=== PATIENT | male | born 1985 | race Asian ===

== ENCOUNTER 2023-02-21 20:31 | Emergency (ER) | payer BC ==
[~2023-02-21] VITALS: Ht 177.8 cm; Wt 102.1 kg
[2023-02-21 20:51] VITALS: BP_SYST 141; PULSE 99; RESP 18; TEMP 99.2; O2SAT 99
[2023-02-21 21:27] LABS: BASOPHILS % (AUTO) 0.3 % (0.0-2.0); EOSINOPHILS # (AUTO) 0.1 K/uL (0.0-0.4); EOSINOPHILS % (AUTO) 0.8 % (0.0-4.0); HEMATOCRIT 48.7 % (36-54); HEMOGLOBIN 17.2 g/dL (14.0-18.0); LYMPHOCYTES # (AUTO) 1.2 K/uL (1.0-5.5); LYMPHOCYTES % (AUTO) 8.7 % (20.5-51.5); MEAN CORPUSCULAR HEMOGLOBIN 32 pg (27-31); MEAN CORPUSCULAR HGB CONC 35 % (32-36); MEAN CORPUSCULAR VOLUME 90 fL (79.0-98.0); MONOCYTES # (AUTO) 1.1 K/uL (0.0-1.0); MONOCYTES % (AUTO) 8.2 % (1.7-9.3); PLATELET COUNT (AUTO) 314 K/uL (130-430); RED BLOOD CELL COUNT(AUTO) 5.44 MIL/uL (4.2-6.2); RED CELL DISTRIBUTION WIDTH 12.8 % (9.0-15.0); WHITE BLOOD COUNT (AUTO) 13.4 K/uL (4.8-10.8)
[2023-02-21 21:33] LABS: CALCIUM 9.2 mg/dL (8.4-11.0); CREATININE 1.12 mg/dL (0.55-1.30); POTASSIUM 4.4 mmol/L (3.5-5.1)
[2023-02-21 21:50] LABS: BILIRUBIN,URINE NEGATIVE (NEGATIVE); BLOOD, URINE NEGATIVE (NEGATIVE); CLARITY/URINE CLEAR (CLEAR); COLOR,URINE YELLOW (YELLOW); GLUCOSE,URINE NEGATIVE (NEGATIVE); KETONES,URINE NEGATIVE (NEGATIVE); LEUKOCYTE ESTERASE ,URINE NEGATIVE (NEGATIVE); NITRITE, URINE NEGATIVE (NEGATIVE); PROTEIN URINE NEGATIVE (NEGATIVE)
[2023-02-22] MEDS ORDERED: NAPR-690 PO (00:02)
[2023-02-22] MEDS ORDERED: CIPR500T5 PO (00:02)
[2023-02-22 00:14] VITALS: BP_SYST 122; PULSE 98; RESP 16; TEMP 99.3; O2SAT 98
== END 2023-02-22 00:14 | disposition home or self-care (01) ==
LOC: SED 20:31
DX: N45.1 Epididymitis (principal); N50.812 Left testicular pain; R35.0 Frequency of micturition; Z79.899 Other long term (current) drug therapy
CPT/HCPCS: 36415; 76870-TC; 80048; 81001; 81003; 85025; 99284